=== PATIENT | female | born 1950 | race Caucasian/White ===

== ENCOUNTER → 2016-10-23 | Outpatient (CLI) | payer MEDICARE ==
--- NOTE | 2016-10-23 10:04 | MM ---
Reason for exam: clinical finding. Last mammogram was performed 5 years and 1 month ago. History: Patient is postmenopausal. Took hormonal contraceptives for 2 years beginning at age 18. Took estrogen beginning at age 50. Took progesterone beginning at age 50. Physical Findings: Nurse did not find any significant physical abnormalities on exam. MG 3D Diag Mammo W/Cad MIGUEL ANGEL Bilateral CC and MLO view(s) were taken. Prior study comparison: October 05, 2011, bilateral digital screening mammo w/CAD. October 03, 2010, bilateral diagnostic digital mammog. There are scattered fibroglandular densities. Finding: There are typically benign round calcifications in both breasts. There is no discrete abnormality. These results were verbally communicated with the patient and result sheet given to the patient on 10/23/16. ASSESSMENT: Benign, BI-RAD 2 RECOMMENDATION: Routine screening mammogram of both breasts in 1 year. Manage on a clinical basis with regard to right breast pain.
== END | disposition home or self-care (01) ==
LOC: RADMAMWWP 08:35
PROVIDERS: ATTEND Obstetrics & Gynecology
DX: N64.4 Mastodynia (principal)
CPT/HCPCS: G0204; G0279

== ENCOUNTER → 2016-10-27 | Outpatient (CLI) | payer MEDICARE, OTHER ==
--- NOTE | 2016-10-27 18:08 | MR ---
EXAMINATION TYPE: MR wrist LT wo con DATE OF EXAM: 10/27/2016 1:41 PM COMPARISON: NONE HISTORY: 66-year-old female Left wrist pain, injury TECHNIQUE: Multiplanar, multisequence images of the left wrist were obtained without IV contrast. FINDINGS: No significant radiocarpal joint effusion. Evaluation of the osseous structures show prominent subcho ndral cystic change and marginal spurring at the first CMC joint compatible with osteoarthrosis and m ild spurring at the triscaphe joint. Focal osseous edema and cystic change along the ulnar proximal lunate. No osseous erosions are identified or suspicious bone marrow replacement. Both scapholunate and lunotriquetral ligaments appear grossly intact. There is prominent joint fluid or synovitis noted along the prestyloid recess. There is a longitudinal split within the extensor carpi ulnaris at the level of the distal ulna with mild surrounding T2 synovial thickening and soft tissue edema. Otherwise, the dorsal extensor and vol ar flexor tendons are within normal limits. Median nerve is normal caliber. While both the dorsal and volar radioulnar ligaments appear intact, there is a large central perforat ion of the jugular fibrocartilage. Trace effusion within the distal radial ulnar joint. The visualized musculature is within normal limits. IMPRESSION: 1. Findings compatible with ulnar impaction syndrome, White classification IIC, with a large central tear through the TFC and lunate chondromalacia. 2. Nonspecific effusion or synovitis along the prestyloid recess. 3. 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 4. Split tear of the ECU with mild tenosynovitis.
== END | disposition home or self-care (01) ==
LOC: RADMRIMAIN 12:36
PROVIDERS: ATTEND Family Medicine
DX: S66.319A Strain of extensor muscle, fascia and tendon of unspecified finger at wrist and hand level, initial encounter (principal); M19.042 Primary osteoarthritis, left hand; M65.842 Other synovitis and tenosynovitis, left hand

== ENCOUNTER → 2017-02-20 | Outpatient (CLI) | payer MEDICARE ==
[2017-02-20 12:33] LABS: Blood Urea Nitrogen 11 mg/dL (7-17); Non-African American GFR(MDRD) >60 (>60 ml/min/1.73 sqM)
--- NOTE | 2017-03-06 11:07 | CT ---
EXAMINATION TYPE: CT chest w con DATE OF EXAM: 02/20/2017 1:36 PM COMPARISON: Previous CT scan of the chest dated 09/21/2016. HISTORY: Abnormal lung findings CT DLP: 255.5 mGycm Automated exposure control for dose reduction was used. CONTRAST: CT scan of the chest is performed with IV Contrast, patient injected with 100 mL of Omnipaque 300. FINDINGS: There is some scarring or atelectasis in the right middle lobe. There is a calcified granul scott also in the right middle lobe. No other parenchymal lesion is seen. There is no significant axillary, internal mammary, mediastinal or hilar adenopathy. There is no pleu ral or pericardial fluid heart size is upper limits of normal. There is evidence of old granulomatous disease in the spleen. The gallbladder has been removed. Visua lized portions of the upper abdomen are otherwise unremarkable. There is hypertrophic spondylosis within the spine. IMPRESSION: 1. 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 2. MILD HYPERTROPHIC SPONDYLOSIS WITHIN THE SPINE.
== END | disposition home or self-care (01) ==
LOC: RADCTMAIN 11:29
PROVIDERS: ATTEND Internal Medicine Critical Care Medicine
DX: D71 Functional disorders of polymorphonuclear neutrophils (principal); M47.899 Other spondylosis, site unspecified
CPT/HCPCS: 82565; 84520; 71260; 36415; Q9967

== ENCOUNTER → 2017-03-28 | Outpatient (CLI) | payer MEDICARE ==
[2017-03-28 11:15] LABS: Blood Urea Nitrogen 10 mg/dL (7-17); Non-African American GFR(MDRD) >60 (>60 ml/min/1.73 sqM)
== END | disposition home or self-care (01) ==
LOC: LABWHC1 10:10
PROVIDERS: ATTEND Otolaryngology
DX: R22.1 Localized swelling, mass and lump, neck (principal)
CPT/HCPCS: 36415; 82565; 84520

== ENCOUNTER → 2017-04-04 | Outpatient (CLI) | payer MEDICARE ==
--- NOTE | 2017-04-04 15:33 | CT ---
EXAMINATION TYPE: CT soft tissue neck w con DATE OF EXAM: 04/04/2017 COMPARISON: NONE HISTORY: Patient complains of right side submandibular swelling/mass (marked by bb). Area is painful to the touch. CT DLP: 538 mGycm CONTRAST: Patient injected with 100 mL of Omnipaque 300. TECHNIQUE: Axial images at 3 mm thick sections. Reconstructed images in the coronal plane and sagitt al plane are reviewed. FINDINGS: Limited CT sections are obtained the lung apices. The lung apices appear clear. CT neck: The torus tubarius and fossa of Rosenmuller are normal. Surtass Analyst spaces are normal. Para nasal sinuses and mastoid air cells are clear. Parotid glands appear normal and symmetrical. Submandibular glands, are normal. Parapharyngeal spac es are normal. No suspicious adenopathy is evident. Beam hardening artifact is present at the level of the mandible. The hypopharynx appears within normal limits. Vocal cord level appear symmetrical. Thyroid as visualized is normal. Osseous structures are normal. Below the BB on the right neck a tiny lymph node may be deep to the platysmas muscle at that level. N o suspicious adenopathy is evident. IMPRESSIONS: 1. No suspicious abnormality at the level marked by the BB. 2. No suspicious CT findings.
== END | disposition home or self-care (01) ==
LOC: RADCTMAIN 13:25
PROVIDERS: ATTEND Otolaryngology
DX: R22.1 Localized swelling, mass and lump, neck (principal)
CPT/HCPCS: 70491; 36415; Q9967

== ENCOUNTER → 2018-07-04 | Day surgery (SDC) | payer MEDICARE ==
[2018-06-11 16:16] VITALS: BMI 27.5
[~2018-07-04] MED LIST: GLYCOPYRROLATE 0.2 MG/ML 2 ML VIAL ONE; LACTATED RINGERS 1,000 ML IV SCH; LIDOCAINE 1% 20 ML VIAL (10MG/ML) FOR IV START INTRADERMA ONE; LIDOCAINE 1% INJ 10MG/ML (20 ML MDV) ONE; PROPOFOL 10 MG/ML 20 ML VIAL IV ONE
[2018-07-04 08:10] VITALS: TEMP 97.6
[2018-07-04 09:22] VITALS: RESP 16
--- NOTE | 2018-07-04 09:26 | P.PCN ---
Date of Procedure: 07/04/18 Procedure(s) Performed: Brief history: Patient is a pleasant 68-year-old white female, scheduled for an elective upper endoscopy as well as colonoscopy as a part of evaluation of GERD/screening for colorectal neoplasia. Procedure performed: Esophagogastroduodenoscopy with biopsy Colonoscopy Preoperative diagnosis: GERD Screening for colon cancer Anesthesia: MAC Procedure: After informed consent was obtained from the patient was brought into the endoscopy unit and IV sedation was administered by anesthesia under continuous monitoring. Initially upper endoscopy was done. The Olympus GF 160 video endoscope was inserted inserted into the mouth and esophagus intubated without any difficulty and was gradually advanced into the stomach and duodenum and carefully examined. The bulb and second part of the duodenum appeared normal. The scope was then withdrawn into the stomach adequately insufflated with air and upon careful examination the antrum had patchy areas of erythema consistent with a mild gastritis and biopsies were done from this area. The body, cardia and fundus appeared normal. The scope was then withdrawn into the esophagus. The GE junction was located at 40 cm to the incisors. It appeared regular and there was one superficial erosion consistent with LA grade a reflux esophagitis.. Rest of the esophagus appeared normal. Patient tolerated the procedure well. At this time the patient continued to remain sedation. Initial digital rectal examination was normal. Olympus CF 160 video colonoscope was then inserted into the rectum and gradually advanced to the cecum without any difficulty. Careful examination was performed as the scope was gradually being withdrawn. The prep was excellent. The cecum, ascending colon, transverse colon, descending colon, sigmoid colon and rectum appeared normal. Scattered sigmoid diverticulosis seen. Retroflexion was performed in the rectum and no lesions were noted. Patient tolerated the procedure well. Impression: 1. Upper endoscopy revealed mild antral gastritis and a grade A reflux esophagitis 2. Colonoscopy revealed scattered sigmoid diverticulosis but no evidence of colorectal neoplasia Recommendations: Findings of this examination were discussed with the patient as well as her family. She was advised to follow with the biopsy results. She can have a repeat screening colonoscopy in 10 years.]
[2018-07-04 09:29] VITALS: BP 154/67; PULSE 79
== END ==
LOC: ORWHC2ENDO 07:52
PROVIDERS: ATTEND Internal Medicine Gastroenterology
DX: Z12.11 Encounter for screening for malignant neoplasm of colon (principal); K29.50 Unspecified chronic gastritis without bleeding; K21.0 Gastro-esophageal reflux disease with esophagitis; K57.30 Diverticulosis of large intestine without perforation or abscess without bleeding; I10 Essential (primary) hypertension; M19.90 Unspecified osteoarthritis, unspecified site; Z79.51 Long term (current) use of inhaled steroids; Z79.899 Other long term (current) drug therapy; Z88.2 Allergy status to sulfonamides; Z91.012 Allergy to eggs
CPT/HCPCS: 88305; 43239; J2001; J2704; G0121

== ENCOUNTER → 2018-07-11 | Outpatient (CLI) | payer MEDICARE ==
[2018-07-11 09:18] LABS: Albumin 4.2 g/dL (3.5-5.0); Calcium 9.4 mg/dL (8.4-10.2); Potassium 4.4 mmol/L (3.5-5.1); Total Bilirubin 0.7 mg/dL (0.2-1.3); Total Protein 7.3 g/dL (6.3-8.2)
== END | disposition home or self-care (01) ==
LOC: LABWHC1 08:00
PROVIDERS: ATTEND Internal Medicine Interventional Cardiology
DX: E78.2 Mixed hyperlipidemia (principal)
CPT/HCPCS: 36415; 80053; 80061

== ENCOUNTER → 2023-07-18 | Outpatient (CLI) | payer MEDICARE ==
[2023-07-18 17:04] LABS: ALT 16 U/L (8-44); AST 17 U/L (13-35); Albumin 4.3 d/dL (3.8-4.9); Albumin/Globulin Ratio 1.54 Ratio (1.60-3.17); Alkaline Phosphatase 69 U/L (41-126); BUN/Creat Ratio 14.56 Ratio (12.00-20.00); Basophils # (A) 0.04 X 10*3/uL (0.00-0.10); Basophils % (A) 0.5 %; Blood Urea Nitrogen 13.1 mg/dL (9.0-27.0); Calcium 9.7 mg/dL (8.7-10.3); Carbon Dioxide 22.9 mmol/L (21.6-31.8); Chloride 102 mmol/L (96-109); Chol/HDL Ratio 4.52 Ratio; Eosinophils % (A) 5.2 %; Globulin 2.8 d/dL (1.6-3.3); Glucose 108 mg/dL (70-110); HCT 39.8 % (37.2-46.3); HGB 13.2 d/dL (12.0-15.0); LDL Cholesterol,Calculated 141.6 mg/dL (0.0-131.0); Lymphocytes # (A) 1.68 X 10*3/uL (0.90-5.00); MCH 31.1 pg (27.0-32.0); MCHC 33.2 d/dL (32.0-37.0); MCV 93.9 FL (80.0-97.0); Mean Platelet Volume 10.4 FL (9.5-12.2); Monocytes # (A) 0.82 X 10*3/uL (0.20-1.00); Monocytes % (A) 10.7 %; NRBC Per 100 WBC 0 X 10*3/uL (0.00-0.01); Neutrophils % (A) 61.5 %; Platelet Count 250 X 10*3/uL (140-440); Potassium 4.1 mmol/L (3.5-5.5); RBC 4.24 X 10*6/uL (4.10-5.20); RDW 11.7 % (11.5-14.5); Sodium 138 mmol/L (135-145); Total Bilirubin 0.4 mg/dL (0.3-1.2); Total Protein 7.1 d/dL (6.2-8.2); WBC 7.65 X 10*3/uL (4.50-10.00)
== END | disposition home or self-care (01) ==
LOC: LABWHC1 07:59
PROVIDERS: ATTEND Family Medicine
DX: Z00.00 Encounter for general adult medical examination without abnormal findings (principal)
CPT/HCPCS: 36415; 80053; 80061; 82306; 82607; 84443; 85025

== ENCOUNTER → 2023-08-05 | Outpatient (CLI) | payer MEDICARE ==
--- NOTE | 2023-08-05 10:09 | MM ---
Reason for Exam: Screening (asymptomatic). Last mammogram was performed 6 year(s) and 9 month(s) ago. Patient History: Menarche at age 14. First Full-Term at age 21. Right ovary removed at age 54. Hysterectomy at age 54. Postmenopausal. Estrogen, from age 50 until age 51. Progesterone, from age 50 until age 51. Hormonal Contraceptives for 2 years from age 18 until age 20. Risk Values: Sharon 5 year model risk: 1.4%. NCI Lifetime model risk: 3.6%. Prior Study Comparison: 10/03/2010 Bilateral Diagnostic Mammogram, [facility]. 10/05/2011 Bilateral Screening Mammogram, [facility]. 10/23/2016 Bilateral Diagnostic Mammogram, [facility]. Tissue Density: There are scattered fibroglandular densities. Findings: Analyzed By CAD. There is no suspicious group of microcalcifications or new suspicious mass. Overall Assessment: Negative, BI-RAD 1 Management: Screening Mammogram of both breasts in [address] [facility] will attempt to contact patient to return for supplemental views and ultrasound if indicated. Patient should continue monthly self-breast exams. A clinical breast exam by your physician is recommended on an annual basis. This exam should not preclude additional follow-up of suspicious palpable abnormalities. Note on Sharon scores and lifetime risk: 1. A Sharon score greater than 3% is considered moderate risk. If this is the case, consider specialist referral to assess eligibility for a risk reducing agent. 2. If overall lifetime risk for the development of breast cancer is 20% or higher, the patient may qualify for future screening with alternating mammogram and breast MRI. Electronically signed and approved by: Bassam Garcias DO
== END | disposition home or self-care (01) ==
LOC: RADMAMWWP 06:56
PROVIDERS: ATTEND Family Medicine
DX: Z12.31 Encounter for screening mammogram for malignant neoplasm of breast (principal); Z78.0 Asymptomatic menopausal state
CPT/HCPCS: 77063; 77067

== ENCOUNTER → 2023-11-01 | Outpatient (CLI) | payer MEDICARE ==
--- NOTE | 2023-11-01 18:09 | BD ---
EXAMINATION TYPE: Axial Bone Density DATE OF EXAM: 11/01/2023 CLINICAL HISTORY: 73 years old Female. ICD-10 CODE: Z78.0 ASYMPTOMATIC MENOPAUSAL STATE Height: 63.2 Weight: 168 FRAX RISK QUESTIONS: Family History (Parent hip fracture): no, but her older sister Glucocorticoids (More than 3mos): in the past but none now (Ex: prednisone, prednisolone, methylprednisolone, dexamethasone, and hydrocortisone). 3. Menopause before 45: at age 51 yrs old RISK FACTORS HISTORY OF: nothing to note here MEDICATIONS: nothing to not here except multivitamin and D3, magnesium, EXAM MEASUREMENTS: Bone mineral densitometry was performed using the H2020 System. Bone mineral density as measured about the Lumbar spine is: ----- L1-L4(G/cm2): 1.300 T Score Values are as follows: ----- L1: -0.4 ----- L2: 1.2 ----- L3: 2.0 ----- L4: 1.0 ----- L1-L4: 1.0 Z Score Values are as follows: ----- L1: 0.9 ----- L2: 2.5 ----- L3: 3.5 ----- L4: 2.4 ----- L1-L4: 2.4 Bone mineral density has: Increased 11.3% since study of: 11.07.2010 Bone mineral density about the R hip (g/cm2): 0.888 Bone mineral density about the L hip (g/cm2): 0.919 T Score values are as follows: -----R Neck: -1.7 -----L Neck: -0.8 -----R Total: -1.0 -----L Total: -0.7 Z Score values are as follows: -----R Neck: -0.1 -----L Neck: -0.2 -----R Total: 0.4 -----L Total: 0.7 Bone mineral density has: Decreased -8.4% since study of: 11.07.2010 FRAX%s: The graph provided illustrates a 11.6% chance for a major osteoporotic fx and a 2.4% chance f or the hips probability for fx in 10 years time. IMPRESSION: Osteopenia (T Score between -2.5 and -1). There is slightly increased risk of fracture and the patient may be considered for treatment. Re-Screen 2-5 years. NOTE: T-SCORE=SD OF THE YOUNG ADULT MEAN.
== END | disposition home or self-care (01) ==
LOC: RADBDWWP 07:49
PROVIDERS: ATTEND Family Medicine
DX: M85.851 Other specified disorders of bone density and structure, right thigh (principal); Z78.0 Asymptomatic menopausal state
CPT/HCPCS: 77080

== ENCOUNTER → 2024-02-13 | Outpatient (CLI) | payer MEDICARE ==
[2024-02-13 14:51] LABS: Blood Urea Nitrogen 16.2 mg/dL (9.0-27.0); Carbon Dioxide 23.1 mmol/L (21.6-31.8); Chloride 94 mmol/L (96-109); Sodium 133 mmol/L (135-145)
== END | disposition home or self-care (01) ==
LOC: LABWHC1 08:09
PROVIDERS: ATTEND Internal Medicine Interventional Cardiology
DX: I10 Essential (primary) hypertension (principal)
CPT/HCPCS: 36415; 80051; 82565; 84520

== ENCOUNTER → 2024-03-04 | Outpatient (CLI) | payer MEDICARE ==
[2024-03-04 15:12] LABS: ALT 21 U/L (8-44); AST 22 U/L (13-35); LDL Cholesterol,Calculated 113.4 mg/dL (0.0-131.0)
== END | disposition home or self-care (01) ==
LOC: LABWHC1 10:38
PROVIDERS: ATTEND Internal Medicine Interventional Cardiology
DX: E78.2 Mixed hyperlipidemia (principal)
CPT/HCPCS: 36415; 80061; 84450; 84460

== ENCOUNTER 2024-03-20 05:56 | Day surgery (SDC) | payer MEDICARE ==
[2024-03-20] MEDS ORDERED: LIDOCAINE 1% (10MG/ML) FOR IV START INTRADERMA PRN (06:07)
[2024-03-20] MEDS: LACTATED RINGERS 1,000 ML IV SCH (06:36)
[2024-03-20] MEDS: IV FLUID CONTINUATION 1,000 ML IV ONE ×2 (06:36→06:59)
[2024-03-20] MEDS ORDERED: LIDOCAINE 1% INJ 10MG/ML (20 ML MDV) ONE (07:00)
[2024-03-20] MEDS ORDERED: fentaNYL (PF) 50 MCG/ML 2 ML AMP IV PRN (07:00)
[2024-03-20] MEDS ORDERED: PROPOFOL 10 MG/ML 20 ML VIAL IV ONE (07:00)
[2024-03-20] MEDS ORDERED: MIDAZOLAM 2 MG/2 ML VIAL IV PRN (07:00)
--- NOTE | 2024-03-20 07:27 | P.PCN ---
Date of Procedure: 03/20/24 Procedure(s) Performed: Brief history: Patient is a pleasant 73-year-old white female scheduled for an elective upper endoscopy as well as colonoscopy as a part of evaluation of GERD and screening for colon cancer. Her sister was diagnosed with colon cancer at age 73. Procedure performed: Esophagogastroduodenoscopy with biopsy Colonoscopy Preoperative diagnosis: GERD Screening for colon cancer and family history of colon cancer Anesthesia: MAC Procedure: After informed consent was obtained from the patient was brought into the endoscopy unit and IV sedation was administered by anesthesia under continuous monitoring. Initially upper endoscopy was done. The Olympus GF 160 video endoscope was inserted inserted into the mouth and esophagus intubated without any difficulty and was gradually advanced into the stomach and duodenum and carefully examined. The bulb and second part of the duodenum appeared normal. The scope was then withdrawn into the stomach adequately insufflated with air and upon careful examination the antrum had mild gastritis and biopsies were done from this area. Mucosa body, cardia and fundus appeared normal. The scope was then withdrawn into the esophagus. Small hiatal hernia noted. The GE junction was located at 37 cm to the incisors. It appeared regular with superficial erosions consistent with LA grade B reflux esophagitis.. Rest of the esophagus appeared normal. Patient tolerated the procedure well. At this time the patient continued to remain sedation. Initial digital rectal examination was normal. Olympus CF 160 video colonoscope was then inserted into the rectum and gradually advanced to the cecum without any difficulty. Careful examination was performed as the scope was gradually being withdrawn. The prep was excellent. The cecum, ascending colon, transverse colon, descending colon, sigmoid colon and rectum appeared normal. Scattered sigmoid diverticulosis. Retroflexion was performed in the rectum and no lesions were noted. Patient tolerated the procedure well. Impression: 1. Upper endoscopy revealed small hiatal hernia, LA grade B reflux esophagitis and mild antral gastritis. 2. Colonoscopy revealed scattered sigmoid diverticulosis but no evidence of colorectal neoplasia Recommendations: Findings of this examination were discussed with the patient as well as her family. She was advised to follow-up with the biopsy results. Recommend Prilosec 20 mg daily and follow antireflux measures. Repeat colonoscopy in 5 years because of the family history of colon cancer
[2024-03-20 07:55] VITALS: BP 160/84; PULSE 58; RESP 16
== END 2024-03-20 08:25 | disposition home or self-care (01) ==
LOC: ORWHC2ENDO 05:56
PROVIDERS: ATTEND Internal Medicine Gastroenterology
DX: Z12.11 Encounter for screening for malignant neoplasm of colon (principal); K21.00 Gastro-esophageal reflux disease with esophagitis, without bleeding; K31.9 Disease of stomach and duodenum, unspecified; K44.9 Diaphragmatic hernia without obstruction or gangrene; K29.70 Gastritis, unspecified, without bleeding; K57.30 Diverticulosis of large intestine without perforation or abscess without bleeding; I10 Essential (primary) hypertension; G47.33 Obstructive sleep apnea (adult) (pediatric); Z88.2 Allergy status to sulfonamides; Z91.040 Latex allergy status; Z80.0 Family history of malignant neoplasm of digestive organs; Z79.899 Other long term (current) drug therapy; Z90.49 Acquired absence of other specified parts of digestive tract
CPT/HCPCS: 88305; 43239; J2001; J2704; G0105

== ENCOUNTER → 2024-10-28 | Outpatient (CLI) | payer MEDICARE ==
--- NOTE | 2024-10-28 09:44 | XR ---
EXAMINATION TYPE: XR lumbosacral spine min 4V DATE OF EXAM: 10/28/2024 9:37 AM COMPARISON: None CLINICAL INDICATION: Female, 74 years old with history of M54.50 LOW BACK PAIN; [facility] TECHNIQUE: XR lumbosacral spine min 4V - Frontal, lateral , bilateral oblique and coned in L5-S1 late ral views of the spine. FINDINGS: No evidence of any acute osseous pathology. No evidence of loss of vertebral body height i s seen. There is mild DEXA scoliosis alignment apex L3. Scattered disc space narrowing. Multilevel ma rginal osteophyte formation throughout the visualized spine. There is facet joint arthropathy through out the spine. Scattered at least mild neural foraminal stenosis.. Cholecystectomy changes. Atherosclerosis of the arterial vasculature. IMPRESSION: 1. No acute fracture. 2. Moderate multilevel disc degeneration. 3. Mild dextroscoliosis [facility], , 10/28/2024 9:42 AM
== END | disposition home or self-care (01) ==
LOC: RADXRMAIN 09:10
PROVIDERS: ATTEND Family Medicine
DX: M51.360 Other intervertebral disc degeneration, lumbar region with discogenic back pain only (principal); M41.9 Scoliosis, unspecified
CPT/HCPCS: 72110